=== PATIENT | female | born 1945 | race Caucasian/White ===

== ENCOUNTER → 2019-09-21 08:02 | Day surgery (SDC) | payer MEDICARE ==
[~2019-09-21 08:02] MED LIST: Aspirin 81 mg CHEW TAB* 81 MG TAB.CHEW PO SCH; Atorvastatin* 80 MG TAB PO SCH; CAPTopril TAB* 12.5 MG TAB PO SCH; Clopidogrel TAB* 75 MG PO SCH; Furosemide TAB* 20 MG PO SCH; Heparin 2 UNITS/ML IVPREMIX* 2,000 ML IV ONE; Heparin(*) 1000 UNIT/ML 10 ML VIAL CATH LAB IV ONE; Iodixanol 320 (CONTRAST) 100 ML SDV ONE; Lidocaine 1% INJ* 10 MG/ML 30 ML SDV ONE; Metoprolol Succinate XL TAB* 25 MG PO ONE; Metoprolol Succinate XL TAB* 25 MG PO SCH; Metoprolol Tartrate TAB* 25 MG PO SCH; Midazolam* 1 MG/ML 5 ML VIAL (5 MG) ONE; NS 0.9% 1000 ML** 1,000 ML IV SCH; Nitroglycerin TAB 0.4 MG* 0.4 MG TAB SL PRN; VERAPAMIL 2.5 MG/ML 2 ML VIAL ** 5 mg/2 ml ONE; fentaNYL* 50 MCG/ML 2 ML VIAL (100 MCG VIAL) ONE; nitroGLYCERIN DRIP* 25,000 MCG/250 ML BTL ONE
[2019-09-21 14:13] VITALS: BP 134/87
--- NOTE | 2019-09-21 15:37 | CATH ---
CC: Bessy Esquivel MD; Dr. Luz Dodge, [facility]; Mag Wagner NP, [facility]* CARDIAC CATHETERIZATION REPORT: DATE OF PROCEDURE: 09/21/19 INDICATION FOR THE PROCEDURE: Asked by Dr. Luz Dodge to perform coronary arteriography and possible intervention on patient who presents with deteriorating left ventricular systolic dysfunction with EF of 30% on echo, 27% on nuclear imaging with symptoms of progressive shortness of breath but no chest discomfort, with a history of prior inferior AR and stenting of the right coronary artery and stenting of the left anterior descending artery in 2016. PROCEDURE PERFORMED: Left heart catheterization, coronary arteriography. CONSENT: The patient was interviewed and examined in the holding area where the risks and benefits were explained. She understood them and wished to proceed. APPROACH UTILIZED: The right radial artery was assessed by ultrasound and found to be acceptable for an attempt for an approach and as such this was the approach utilized. PRECARDIAC CATHETERIZATION LABORATORY RESULTS: Hemoglobin and hematocrit of 13.8 and 41 with a platelet count of 181,000, BUN 19, creatinine 0.85. Sodium 144, potassium 4.8, chloride 109, bicarb 30. INR 0.97. EQUIPMENT UTILIZED: 1. Right radial artery sheath was a 6-Macedonian Glidesheath Slender. 2. Diagnostic guidewire utilized was a Wholey 145 cm length guidewire to initially deliver the diagnostic catheter followed by the Duncan curved exchange length wire for catheter exchanges. 3. The diagnostic catheter utilized was a TIG4 5-Macedonian catheter for the right coronary artery and a FL3.5 curved 5-Macedonian catheter for the left coronary artery. 5. The left heart catheterization catheter was a 5-Macedonian PIG short radial catheter. 6. The closure device utilized was a radial length Vasc Band. MEDICATIONS GIVEN DURING THE PROCEDURE: Included 4300 units of heparin, 300 mcg of nitroglycerin, and 3 mg of verapamil as a radial artery cocktail, 1% Xylocaine for local anesthesia, 1 mg of Versed IV for sedation. DESCRIPTION OF PROCEDURE: The patient was brought to the cardiovascular laboratory where a formal time-out was performed. The patient was prepped and draped in sterile fashion and under ultrasound guidance, the right radial artery was cannulated and the sheath was placed. Coronary arteriography was performed utilizing the TIG4 catheter for the right coronary artery and the FL3.5 curved catheter for the left coronary artery. Following this, left heart catheterization was performed utilizing the 5-Macedonian PIG short radial catheter. At the end of the case, the catheters and sheaths were removed and hemostasis was obtained with a Vasc Band. The reverse Barbeau was a B. The total contrast used was 80 cc of Visipaque dye to radiation exposure included 7.5 minutes of fluoro time. The air kerma radiation was 1315 mGy. The DAP radiation was 7036 microgray per meter squared. RESULTS: HEMODYNAMIC DATA: Left heart catheterization - central aortic pressure recorded at 142/68, left ventricular pressure 141 over left ventricular end- diastolic pressure of 22 to 25 mmHg. CORONARY ARTERIOGRAPHY: A. Right coronary artery - totally occluded proximally with collateral blood flow seen briskly from the left coronary artery to the PDA back to the body of the right coronary artery. B. Left coronary artery: 1. Left main - widely patent. 2. Left anterior descending artery - there was very mild tapering of the proximal left anterior descending artery into the mid segment with mild narrowing of 20%. Of note, the prior stented area of the mid LAD showed no significant obstruction and the LAD extended to the apical region. The LAD supplied a moderate size mid diagonal branch which had mild luminal irregularities but no significant narrowing. 3. Circumflex artery - a nondominant vessel supplying a mid bifurcating obtuse marginal branch with continuation on to a low lying posterior left ventricular branch. The proximal portion had an area of 45% to 50% followed by 65% area before the mid bifurcating obtuse marginal branch. The continuation of the circumflex had a critical 85% narrowing seen as it traversed to the low posterolateral wall supplying 2 posterior left ventricular branches. OVERALL ASSESSMENT: Significant coronary artery disease involving a totally occluded right coronary artery proximally as well as disease in the circumflex as described. At this point in time, there are brisk collaterals to the right coronary artery system from the left system. A discussion was had with Dr. Yong Calle at [facility] with regard to possible options, and at this point in time, maximizing medical management was felt to be the starting point. The idea of performing a DRILL SHARPENER OPERATOR on a right coronary artery which may be diffuse diseased with thrombus could be problematic since there is brisk collateralization through the left anterior descending artery collaterals which are not jeopardized. With respect to the distal circumflex past the mid obtuse marginal branch, that area was already compromised back in 2016 and never opened at that time; therefore, I am not convinced that there is viable myocardium to that area and the last nuclear imaging suggested a fixed defect to the low posterolateral wall. Aggressive medical management with starting a diuretic therapy on top of WANDA inhibition and beta-ivana with consideration of switching over to Entresto as an outpatient as well as cardiac resynchronization therapy in light of the patient' s new left bundle-branch block with a QRS interval of 0.15 would be reasonable within the very near future. If that does not improve LV function further, consideration could be made towards trying to treat the whole circ system. The patient will be started on furosemide 10 mg every day with a BMP check this coming Friday and being sent to Dr. Dodge and nurse practitioner Mag Wagner who will be managing the patient as an outpatient. Nurse practitioner Mag Wagner will see the patient in less than a week's time for ongoing management. All of this was discussed with both Dr. Dodge and with nurse practitioner Mag Wagner, and they understand my current recommendations. [id number] #: [id number] MTDD
== END | disposition home or self-care (01) ==
LOC: CHICATH 08:02
PROVIDERS: ATTEND Internal Medicine Cardiovascular Disease
DX: I25.10 Atherosclerotic heart disease of native coronary artery without angina pectoris (principal); I70.213 Atherosclerosis of native arteries of extremities with intermittent claudication, bilateral legs; I25.5 Ischemic cardiomyopathy; R06.02 Shortness of breath; I25.2 Old myocardial infarction; Z95.5 Presence of coronary angioplasty implant and graft; I47.2 Ventricular tachycardia; E78.5 Hyperlipidemia, unspecified; I08.1 Rheumatic disorders of both mitral and tricuspid valves; F17.210 Nicotine dependence, cigarettes, uncomplicated; R94.31 Abnormal electrocardiogram [ECG] [EKG]; I77.819 Aortic ectasia, unspecified site
CPT/HCPCS: 93458; J1644; J2250; J3010